=== PATIENT | male | born 1975 | race Caucasian/White ===

== ENCOUNTER 2022-01-03 17:20 | Inpatient (IN) | payer OTHER ==
[~2022-01-03] VITALS: Ht 198.1 cm; Wt 154.7 kg
[~2022-01-03 17:20] MED LIST: OMEP40CA20 PO; SIMV-43 PO
[2022-01-03 17:25] VITALS: BP_SYST 166
--- NOTE | 2022-01-03 17:25 | NUR ---
Patient transported to radiology via gurney, accompanied by RAD.
--- NOTE | 2022-01-03 17:30 | NUR ---
Returned from radiology, back to [facility].
--- NOTE | 2022-01-03 17:31 | NUR ---
ER Dr. Vaca at bedside examining patient.
--- NOTE | 2022-01-03 17:31 | NUR ---
# 20 gauge angiocath placed to RAC and left hand. Use of asceptic technique. Opsite placed over site. Blood return noted. Blood for lab drawn from site. Flushed with 10 cc of normal saline. No evidence of infiltration noted. Patient tolerated well.
[2022-01-03] MEDS ORDERED: IOHEXOL 350 mgI/mL, 150 ML INFUS..BTL IV ONE (17:39)
--- NOTE | 2022-01-03 17:39 | NUR ---
Accucheck done and results were 138. Dr. Vaca notified.
--- NOTE | 2022-01-03 17:40 | NUR ---
Chest X-Ray being done at bedside.
--- NOTE | 2022-01-03 17:43 | NUR ---
EKG being done at bedside.
[2022-01-03 17:45] LABS: BASOPHILS # (AUTO) 0.1 K/uL (0.0-0.2); BASOPHILS % (AUTO) 0.8 % (0.0-2.0); EOSINOPHILS % (AUTO) 0.4 % (0.0-4.0); HEMATOCRIT 44.9 % (36-54); HEMOGLOBIN 14.9 g/dL (14.0-18.0); LYMPHOCYTES # (AUTO) 2.5 K/uL (1.0-5.5); LYMPHOCYTES % (AUTO) 17.7 % (20.5-51.5); MEAN CORPUSCULAR HEMOGLOBIN 29 pg (27-31); MEAN CORPUSCULAR HGB CONC 33 % (32-36); MEAN CORPUSCULAR VOLUME 87 fL (79.0-98.0); MONOCYTES # (AUTO) 0.7 K/uL (0.0-1.0); MONOCYTES % (AUTO) 4.9 % (1.7-9.3); NEUTROPHILS # (AUTO) 10.6 K/uL (1.8-7.7); NEUTROPHILS % (AUTO) 76.2 % (40.0-70.0); PLATELET COUNT (AUTO) 283 K/uL (130-430); RED BLOOD CELL COUNT(AUTO) 5.14 MIL/uL (4.2-6.2); RED CELL DISTRIBUTION WIDTH 13.4 % (9.0-15.0)
--- NOTE | 2022-01-03 17:52 | NUR ---
Dr. Rashid speaking to Dr. Vaca regarding Neuro consult. Rosa is not a [employer] Candidate .
[2022-01-03] MEDS ORDERED: ASPIRIN 325 MG TABLET PO ONE (18:00)
[2022-01-03 18:01] LABS: ANION GAP 8 (5-15); CALCIUM 9.8 mg/dL (8.4-11.0); CHLORIDE 101 mmol/L (98-107); GLUCOSE 131 mg/dL (70-99); POTASSIUM 3.4 mmol/L (3.5-5.1); SODIUM SERUM 137 mmol/L (136-145); UREA NITROGEN, BLOOD 13 mg/dL (8-21)
[2022-01-03 18:05] LABS: GFR AFRICAN AMERICAN 92 mL/min (>90)
[2022-01-03 18:09] LABS: ALANINE AMINOTRANSFERASE 26 U/L (12-78); ALBUMIN 3.8 g/dL (3.4-4.8); ASPARTATE AMINOTRANSFERASE 14 U/L (10-37); TOTAL BILIRUBIN 0.6 mg/dL (0.0-1.0)
[2022-01-03 18:13] LABS: INR 0.9 (0.80-1.20); PROTHROMBIN TIME 9.9 SECS (9.5-12.5)
[2022-01-03] MEDS ORDERED: POTASSIUM CHLORIDE 20 MEQ TAB.PRT.SR PO PRN (18:30)
[2022-01-03] MEDS ORDERED: POTASSIUM CHLORIDE 20 MEQ TAB.PRT.SR PO ONE (18:30)
[2022-01-03] MEDS ORDERED: NACL 0.9% 1,000 ML IV ONE (18:30)
[2022-01-03] MEDS ORDERED: LORazepam 2 MG/ML VIAL IVP PRN (18:30)
[2022-01-03] MEDS ORDERED: ZOLPIDEM TARTRATE 5 MG TABLET PO PRN (18:30)
[2022-01-03] MEDS ORDERED: MUPIROCIN 2% TOPICAL OINTMENT 22 GM NS PRN (18:30)
[2022-01-03] MEDS ORDERED: ONDANSETRON HCL 4 MG/2 ML VIAL IVP PRN (18:30)
[2022-01-03] MEDS ORDERED: MORPHINE 2 MG/ML INJ. SYRINGE IVP PRN ×2 (18:30)
[2022-01-03] MEDS ORDERED: MAGNESIUM SULFATE 50 ML IV PRN (18:30)
[2022-01-03] MEDS ORDERED: DOCUSATE SODIUM 100 MG CAPSULE PO PRN (18:30)
[2022-01-03] MEDS ORDERED: ACETAMINOPHEN 325 MG TABLET PO PRN (18:30)
--- NOTE | 2022-01-03 18:32 | NUR ---
Admit bed requested Patient will be admitted to care of . Admitted to Telemetry unit. Diagnosis TIA Inpatient (Yes or No) yes Orientation concerns or request close to nursing station (Yes or No) no Covid Status pending From Home (Yes or if No enter name of facility) yes Med Rec Completed (Yes of No) yes
[2022-01-03] MEDS ORDERED: POTASSIUM CHLORIDE 20 MEQ TAB.PRT.SR ONE (18:41)
[2022-01-03 19:01] LABS: BARBITURATE, URINE NEGATIVE (NEG <=200); BENZODIAZEPINE, URINE NEGATIVE (NEG <=150); CANNABINOID, URINE NEGATIVE (NEG <=50); COCAINE, URINE NEGATIVE (NEG <=150); METHAMPHETAMINES SCREEN,URINE NEGATIVE (NEG <=500); OPIATE, URINE NEGATIVE (NEG <=100); PHENCYCLIDINE SCREEN,URINE NEGATIVE (NEG <=25); UR TRICYCLIC ANTIDEPRESSANTS NEGATIVE (NEG <=300); URINE AMPHETAMINE NEGATIVE (NEG <=500); URINE METHADONE NEGATIVE (NEG <=200); URINE OXYCODONE SCREEN NEGATIVE (NEG <=100); URINE PROPOXYPHENE SCREEN NEGATIVE (NEG <=300)
[2022-01-03 19:13] LABS: BILIRUBIN,URINE NEGATIVE (NEGATIVE); BLOOD, URINE 1+ (NEGATIVE); CLARITY/URINE CLEAR (CLEAR); COLOR,URINE YELLOW (YELLOW); GLUCOSE,URINE NEGATIVE (NEGATIVE); KETONES,URINE NEGATIVE (NEGATIVE); LEUKOCYTE ESTERASE ,URINE NEGATIVE (NEGATIVE); NITRITE, URINE NEGATIVE (NEGATIVE); PROTEIN URINE NEGATIVE (NEGATIVE); UROBILINOGEN,URINE 0.2 (0.2-1.0)
[2022-01-03 19:39] LABS: BACTERIA,URINE RARE /HPF (None Seen); MUCUS,URINE None Seen /LPF (None Seen); RBC,URINE 0-3 /HPF (0-3); WBC,URINE 0-3 /HPF (0-3)
--- NOTE | 2022-01-03 19:44 | NUR ---
Received repoirt from Tabby RN Pt AOX4 VSS Able to make needs known Pt admitted to tele
--- NOTE | 2022-01-03 20:17 | NUR ---
Pt admitted to [id number] AOX4 VSS Able to make needs known Nurse at bedside
--- NOTE | 2022-01-03 21:00 | NUR ---
PT ADMITTED FROM ER, TRANSPORTED VIA GURNEY. PT A/A/&OX4, ABLE TO MAKE NEEDS KNOWN. NOTED PT IS AMBULATORY HE MOVED HIMSELF WITHOUT HELP FROM GURNEY TO BED. SKIN IS INTACT EXCEPT FOR B/L LEGS WITH TATTOO. PT HAS 2 IV SITES RAC WITH 20G, LH WITH 20G, BOTH SALINE LOCK. VITAL SIGNS ARE NORMAL AND STABLE. ON STROKE SCALE PT SCORED 0. WILL CONT TO MONITOR.
[2022-01-03 22:49] VITALS: BP_SYST 129
[2022-01-04] VITALS (8 sets, daily range): BP systolic 129–143
[2022-01-04 07:25] LABS: CREATININE 0.86 mg/dL (0.55-1.30); POTASSIUM 4.2 mmol/L (3.5-5.1)
[2022-01-04 07:41] LABS: BASOPHILS % (AUTO) 0.3 % (0.0-2.0); EOSINOPHILS # (AUTO) 0.1 K/uL (0.0-0.4); EOSINOPHILS % (AUTO) 0.8 % (0.0-4.0); HEMATOCRIT 42.1 % (36-54); HEMOGLOBIN 13.9 g/dL (14.0-18.0); LYMPHOCYTES # (AUTO) 2.2 K/uL (1.0-5.5); LYMPHOCYTES % (AUTO) 25.8 % (20.5-51.5); MEAN CORPUSCULAR HEMOGLOBIN 29 pg (27-31); MEAN CORPUSCULAR HGB CONC 33 % (32-36); MEAN CORPUSCULAR VOLUME 88 fL (79.0-98.0); MONOCYTES # (AUTO) 0.6 K/uL (0.0-1.0); MONOCYTES % (AUTO) 6.6 % (1.7-9.3); NEUTROPHILS # (AUTO) 5.6 K/uL (1.8-7.7); NEUTROPHILS % (AUTO) 66.5 % (40.0-70.0); PLATELET COUNT (AUTO) 254 K/uL (130-430); RED BLOOD CELL COUNT(AUTO) 4.77 MIL/uL (4.2-6.2); RED CELL DISTRIBUTION WIDTH 13.6 % (9.0-15.0); WHITE BLOOD COUNT (AUTO) 8.4 K/uL (4.8-10.8)
[2022-01-04] MEDS ORDERED: ASPIRIN 81 MG TABLET(ECOTRIN) PO SCH (09:00)
--- NOTE | 2022-01-04 16:08 | NUR ---
CONSULTATION PAGED REASON FOR CONSULTATION:TIA WAS CONSULT CALLED?Y PERSON WHO WAS NOTIFIED:TEXT MESSAGED JELLY LAND CONSULTING PHYSICIAN:JELLY LAND PHYSICAL THERAPY DIRECTOR SPECIALTY:NEURO PHYSICAL THERAPY DIRECTOR PHONE NUMBER: [phone] REQUESTING PHYSICIAN: DR.SINGHLAUREN
[2022-01-04] MEDS ORDERED: ASPI-1393 PO (18:54)
--- NOTE | 2022-01-04 20:37 | NUR ---
PATIENT DISCHARGE TO HOME WITH A COPY OF DISCHARGE INSTRUCTION AND ALL BELONGINGS. PATIENT FAMILY MEMBER PRESENT FOR DISCHARGE TEACHING TO CONTINUE HOME MEDICATION AND AMBULANCE ATTENDANT ASPIRIN DIRECTED FROM [facility]. PATIENT HAS VERBALIZED UNDERSTANDING AND WILL FOLLOW UP WITH DOCTOR SUSANA IN 3 WEEKS. CONNER MÉNDEZ RN
== END 2022-01-04 20:35 | disposition home or self-care (01) | DRG 74 ==
LOC: SED 17:20 → STU 18:25
PROVIDERS: ADMIT General Practice; ATTEND General Practice
DX: G90.8 Other disorders of autonomic nervous system (principal); E66.9 Obesity, unspecified; E78.5 Hyperlipidemia, unspecified; K21.9 Gastro-esophageal reflux disease without esophagitis; E87.6 Hypokalemia; Z20.822 Contact with and (suspected) exposure to COVID-19; Z68.39 Body mass index [BMI] 39.0-39.9, adult; Z79.899 Other long term (current) drug therapy; Z90.49 Acquired absence of other specified parts of digestive tract
CPT/HCPCS: 36415; 70450-TC; 70496; 70498; 71045; 76376; 80048; 80053; 80307; 81000; 82962; 83735; 84484; 85025; 85610-TC; 85730-TC; 86886; 86900; 86901; 93005; 99285; G0378; Q9967